=== PATIENT | male | born 1980 | race Caucasian/White ===

== ENCOUNTER → 2022-06-27 14:17 | Outpatient (CLI) | payer BC, SELFPAY ==
--- NOTE | ~2022-06-27 | CT_ITS ---
EXAMINATION: CT abdomen pelvis w con DATE: 06/27/2022 14:49 INDICATION: Right inguinal pain TECHNIQUE: Computed tomography (CT) of the abdomen and pelvis was performed with 100 cc Omnipaque 350 intravenous contrast. The dose-length product was 752.73 mGy-cm. Automated exposure control and iter ative reconstruction technique were employed. COMPARISON: None. FINDINGS: Lung bases unremarkable. Heart size normal. No significant pleural or pericardial effusion. No significant vascular abnormality. No lymphadenopathy. Small fat-containing right inguinal hernia. Nonobstructive bowel pattern. No free air or free fluid. Normal appendix. The liver, spleen, pancreas, adrenal glands and kidneys are unremarkable. Gallbladder is present. The re are possible gallstones. 2 no significant surrounding inflammatory change or biliary dilatation. No acute osseous abnormality. IMPRESSION: 1. Fat-containing right inguinal hernia. 2: Possible cholelithiasis. Consider correlation with ultrasound. Reviewed, dictated and finalized at location B.
[2022-06-27 14:38] LABS: Estimated Glomerular Filt Rate > 60
== END ==
PROVIDERS: PCP Physician Assistant; Visit Provider Physician Assistant
DX: R10.31 Right lower quadrant pain (principal); K40.90 Unilateral inguinal hernia, without obstruction or gangrene, not specified as recurrent
CPT/HCPCS: 74177; Q9967

== ENCOUNTER 2024-10-02 08:09 | Outpatient (CLI) | payer OTHER, SELFPAY ==
--- NOTE | ~2024-10-02 | US_ITS ---
US abdomen complete EXAMINATION: US Abdomen Complete INDICATION: Upper abdomen pain PROCEDURE: Realtime High Resolution abdomen ultrasound. COMPARISON: No prior studies for comparison FINDINGS: There are gallstones. Mild gallbladder wall thickening. Common bile duct measures 4 mm. Liver echotexture within normal limits without focal mass. Pancreas within normal limits. Pancreatic tail is obscured by bowel gas. Spleen is unremarkeable. Renal echotexture is within normal limits bilaterally without hydronephrosis, contour deforming mass or renal stone. Right kidney measures 12.3 cm. Left kidney measures 11.7 cm. Visualized aspects of the aorta and IVC are within normal limits. Portal vein is patent. No sonographic Phan's sign indicated by the technologist. IMPRESSION: 1: Cholelithiasis with mild gallbladder wall thickening. Consider cholecystitis in the appropriate clinical setting. Consider correlation with nuclear hepatobiliary scan. Reviewed, dictated and finalized at location O. IMPRESSION: 1: Cholelithiasis with mild gallbladder wall thickening. Consider cholecystitis in the appropriate clinical setting. Consider correlation with nuclear hepatob iliary scan.
== END 2024-10-02 08:10 | disposition home or self-care (01) ==
PROVIDERS: PCP Physician Assistant; Visit Provider Physician Assistant
DX: R10.10 Upper abdominal pain, unspecified (principal); K80.20 Calculus of gallbladder without cholecystitis without obstruction
CPT/HCPCS: 76700